=== PATIENT | female | born 1945 | race Caucasian/White ===

== ENCOUNTER 2019-03-25 01:40 | Observation (INO) ==
[2019-03-25] MEDS ORDERED: Naloxone 0.4 MG/ML INJ IVP PRN (05:31)
[2019-03-25] MEDS ORDERED: traMADol 50 MG TABLET PO ONE (05:44)
[2019-03-25] MEDS ORDERED: 0.9 % Sodium Chloride 1,000 ML IVC SCH (05:45)
--- NOTE | 2019-03-25 06:08 | Internal Med History&Physical ---
Date of Encounter: 03/25/19 Time of Encounter: 04:30 Internal Medicine - H&P: HPI Chief complaint: Abdominal Pain, Bloody Bowel Movements, Chest Pain Admitted From: Hospital to Hospital Transfer Plans for Post Hospital Care: Home History of present illness: Ms. Mcdaniels is a 73 year old female with past medical history significant for CAD, hypertension, COPD, DVT and PE with IVC filter, non-alcoholic cirrhosis, diabetes, GERD, diverticulosis, arthritis, osteoporosis, anxiety, and depression who presents as hospital transfer from [place] where she presented for abdominal pain, bloody bowel movements, and chest pain. Reports for past 2 days she has had sharp intermittent left lower quadrant abdominal pain accompanied by nausea and diarrhea. She also reports 3 episodes of bright red blood mixed with her stool, however reports her last bowel movement yesterday being normal consistency and without blood. Denies any hematemesis. Reports being in [facility] around 2 months ago for similar pain but states her workup was normal. Denies having any bright red blood with her bowel movements at that time. Also reports having an EGD completed at that time which she thinks was normal. Reports having a colonoscopy around 2 years ago also at [place] which she thinks was normal too. Also reports one day history of intermittent sharp left-sided chest pain associated with shortness of breath, nausea, and diaphoresis. Chest pain was improved with aspirin and nitroglycerin while enroute to sending ER. Patient reports having an echocardiogram and stress test around a year ago at [facility] or [facility] which she thinks both were normal. Sending ER obtained labs including CBC, BMP, lipase, liver panel, troponin, CRP, lactic, BNP all of which were unremarkable other than platelet count of 118, sodium of 132, glucose of 47, creatinine of 1.73, GFR of 28, CRP of 9.6, lactic acid of 2.9 which improved to 2.1 following IV fluids, and magnesium of 1.1. Sending ER also obtained chest x-ray which they reported to me by phone as being a normal chest x-ray that they will fax. Sending ER also reported to me by phone EKG showing chronic left bundle branch block and no acute changes that they will also fax. Sending ER also obtained CT of the abdomen and pelvis which showed diffuse diverticulosis, circumferential sigmoid wall thickening that may represent developing diverticulosis or infectious versus noninfectious colitis or neoplasm recommending colonoscopy after resolution of symptoms for further evaluation, cirrhosis and portal venous hypertension with gastric varices, and cholelithiasis. Patient currently reports feeling pain-free at this time. Currently denies any headache, numbness, tingling, chest pain, shortness of breath, abdominal pain, nausea, bowel or bladder changes. Reports following regularly with her PCP along with liver specialist at [facility]. Denies checking her blood sugars regularly. Past Med Surg Social Fam HX - Past Medical History Medical history: arthritis, cirrhosis, COPD, coronary artery disease, DVT, diabetes, GERD, hypertension, osteoporosis, pulmonary embolus, renal disease, valvular heart disease Additional medical history: Torn meniscus L knee - never repaired Psychiatric history: anxiety, depression - Past Surgical History Surgical History: cataract, hysterectomy, IVC filter Additional surgical history: Partial hysterectomy 1998; hernia repair x3; tonsils and adenoids removed; tubal ligation; IVC filter left groin - current/present - Social History Smoking Status: Never smoker Smokeless Tobacco Status: No Alcohol use: none Drug use: none Internal Medicine - H&P: Meds Allergy/AdvReac Type Severity Reaction Status Date / Time heparin Allergy Nausea Verified 03/25/19 05:41 All Systems PM: A 10-system review of systems was performed and is negative for pertinent findings except as documented above in the HPI. - Constitutional Vitals: Temp Pulse Resp BP Pulse Ox 98.0 F 93 16 137/84 98 03/25/19 03:46 03/25/19 03:46 03/25/19 03:46 03/25/19 03:46 03/25/19 03:58 Exam: General: Alert and oriented. Skin:Normal color, no rash, no lesions. HEENT:Pupils equal, round and reactive. Cardiovascular:Heart sounds distant, no rubs, murmurs or gallops. No JVD. Pulse regular. Lungs:Normal breath sounds, no wheezes or crackles. Abdomen:Soft, tender to palpation to LLQ, no rigidity, hypoactive bowel sounds. Extremities:No deformity, tenderness, joint swelling or clubbing. Non pitting edema noted to bilateral lower extremities. Neurological:Normal cognition and motor skills. Pulses:Carotid and radial pulses normal +2. Rest of the physical exam is non contributory. - Assessment and Plan (1) Abdominal pain Current Visit: Yes Status: Acute Assessment and plan: Reports for past 2 days she has had sharp intermittent left lower quadrant abdominal pain accompanied by nausea and diarrhea. Also reports 3 episodes of bright red blood mixed with her stool, however reports her last bowel movement yesterday being normal consistency and without blood. Reports being in [facility] around 2 months ago for similar pain but states her workup was normal. Sending ER obtained CT Abdomen Pelvis which showed diffuse diverticulosis, circumferential sigmoid wall thickening that may represent developing diverticulosis or infectious versus noninfectious colitis or neoplasm recommending colonoscopy after resolution of symptoms for further evaluation, cirrhosis and portal venous hypertension with gastric varices, and cholelithiasis. GI consult ordered, will need called in a.m. Continue IVF's. CBC q 8 hours. Coags ordered. Obtain stool study if another bowel movement. Qualifiers: Abdominal location: left lower quadrant Qualified Code(s): R10.32 - Left lower quadrant pain (2) Chest pain Current Visit: Yes Status: Acute Assessment and plan: Reports one day history of intermittent sharp left-sided chest pain associated with shortness of breath, nausea, diaphoresis. Chest pain was improved with aspirin and nitroglycerin while enroute to sending ER. Currently remains resolved at this time. Patient reports having a echocardiogram and stress test around a year ago at [facility] which she thinks both were normal. Initial troponin at sending ER negative, serial troponins ordered. Echocardiogram ordered. Continuous cardiac monitoring. Qualifiers: Chest pain type: unspecified Qualified Code(s): R07.9 - Chest pain, unspecified (3) Abnormal CT of the abdomen Current Visit: Yes Status: Acute Assessment and plan: Plan as stated above. (4) Thrombocytopenia Current Visit: Yes Status: Acute Assessment and plan: Platelet count of 118 at sending ER. Remainder of CBC within normal limits. Unknown if this is acute or chronic. Repeat labs ordered. (5) Acute kidney injury Current Visit: Yes Status: Acute Assessment and plan: Denies any known history of kidney disease. Sending ER labs show creatinine of 1.73 and GFR of 28 with normal BUN. Avoid nephrotoxins. Possibly related to recent decreased oral intake. Received IVF's at sending ER. Repeat labs ordered. Consult Nephrology if worsening kidney function. (6) Hyponatremia Current Visit: Yes Status: Acute Assessment and plan: Slightly decreased at sending ER at 132. Received IVF's at sending ER. Repeat labs ordered. (7) Elevated lactic acid level Current Visit: Yes Status: Acute Assessment and plan: Elevated at 2.9 at sending ER, repeat after fluids down to 2.1 Continue IVF's. Repeat labs ordered. (8) Hypomagnesemia Current Visit: Yes Status: Acute Assessment and plan: Sending ER labs showed magnesium of 1.1 No replacement reported at sending ER. Repeat labs ordered, replace if needed. (9) Cirrhosis Current Visit: Yes Status: Chronic Assessment and plan: Follows with liver specialist at [facility]. CT abdomen pelvis at sending ER showed cirrhosis and portal venous hypertension with gastric varices. Unknown if portal hypertension and gastric varices is new development. GI consult ordered, will need called in a.m. Qualifiers: Hepatic cirrhosis type: unspecified hepatic cirrhosis Ascites presence: unspecified Qualified Code(s): K74.60 - Unspecified cirrhosis of liver (10) Diabetes mellitus Current Visit: Yes Status: Chronic Assessment and plan: Hold home medications. Accuchecks ordered. Sliding scale insulin ordered. Qualifiers: Diabetes mellitus type: type 2 Qualified Code(s): E11.9 - Type 2 diabetes mellitus without complications - Time Spent With Patient Total time spent is greater than 50% in coordination of care (as documented) at patient's floor/unit and/or counseling patient:
[2019-03-25 06:23] LABS: Basophils % 0.8 %; Eosinophils # 0.1 K/mcL (0.0-0.6); Eosinophils % 2.3 %; Hematocrit 34.5 % (35.3-44.9); Hemoglobin 11.8 g/dL (11.5-15.4); Immature Granulocytes % 0.2 % (0-4); Lymphocytes # 2.7 K/mcL (0.6-4.6); Mean Corpuscular HGB Conc 34.2 g/dL (31.6-35.5); Mean Corpuscular Hemoglobin 32.2 pg (28.0-33.3); Mean Platelet Volume 10.8 fL (9.4-12.4); Monocytes # 0.4 K/mcL (0.0-1.3); Monocytes % 7.6 %; Neutrophils # 1.9 K/mcL (1.6-8.9); Platelet Count 101 K/mcL (140-400); Red Blood Count 3.67 M/mcL (3.82-4.97); Red Cell Distribution Width 13.7 % (11.5-14.5); Segmented Neutrophils % 36.1 %; White Blood Count 5.2 K/mcL (4.3-11.1)
[2019-03-25 06:30] LABS: INR 1.1
[2019-03-25] MEDS ORDERED: Dextrose Gel 15 GM/37.5 ML TUBE PO PRN ×2 (06:30)
[2019-03-25] MEDS ORDERED: *HR* Dextrose 50 % in Water (Syg) 50 ML SYRINGE IVP PRN (06:30)
[2019-03-25] MEDS ORDERED: D5% in Water 1,000 ML IVC PRN (06:30)
[2019-03-25 06:34] LABS: Albumin 3.3 g/dL (3.5-5.7); Albumin/Globulin Ratio 1.2 (1.1-2.2); Bilirubin,Total 0.9 mg/dL (0.3-1.0); Calcium 8.5 mg/dL (8.6-10.3); Globulin 2.8 g/dL (2.4-3.5); Potassium 3.7 mEq/L (3.5-5.1); Total Protein 6.1 g/dL (6.4-8.9)
--- NOTE | 2019-03-25 09:57 | Internal Med Progress Note ---
<Yobany Kelly - Last Filed: 03/25/19 16:02> Hospitalist Progress Note - Encounter Date of Encounter: 03/25/19 Time of Encounter: 09:57 - Subjective Interval History: Ms. Mcdaniels is a 73 y/o F who is a transfer from [facility] on 03/24. She presented with the CC of abdominal pain and bright red blood in her bowel movements for the past 3 days. She also presented with sharp lower left chest pain that resolved after 4 aspirins of unknown strength. CXR at [facility] ED was unremarkable, ECG showed a left bundle branch block that was chronic and had no acute changes, CT of chest was unremarkable, CT of abdomen showed diverticulosis with sigmoid colon wall thickening and possible diverticulitis. Ct also demonstrated liver cirrhosis (previously noted) and portal vein hypertension with gastric varicies. Pt. is currently not in pain and is lying comfortably in bed. She denies SOB, chest pain, wheezing, numbness, or tingling. Pt. complains of dizziness, which she states is normal, and diffuse abdominal tenderness. - Exam Vitals: Temp Pulse Resp BP Pulse Ox 97.8 F 89 15 106/60 98 03/25/19 07:40 03/25/19 07:40 03/25/19 07:40 03/25/19 07:40 03/25/19 09:06 Exam: Gen: AOx3, no acute distress, pleasant affect Skin: Warm and dry, no rashes or lesions Cardic: S1 and S2, no m/r/g Chest :CTA b/l, no wheezes or crackles. Abd:Soft, tender to palpation to RUQ, bowel sounds present. Extremities: Non-pitting edema noted to b/l lower extremities, normal sensation and strength Neuro:No focal deficits Pulses: Pulses normal on all 4 extremities. Rest of the physical exam is non contributory. - Assessment and Plan (1) BRBPR (bright red blood per rectum) Current Visit: Yes Status: Acute Assessment and Plan: Patient with three episodes prior to admission, one normal bowel movement prior to admission. Hgb normal at 11.8. CT at [facility] showed diffuse diverticulosis, circumferential sigmoid wall thickening which may represent developing diverticulitis but could also be seen in infectious vs noninfectious colitis and neoplasm, cirrhosis, portal venous hypertension with gastric varices. Ultrasound at [facility] on 03/25 showed cholelithiasis. GI evalution concluded in the recommendation of colonoscopy or EGD on either 03/[address] Smith to review CT and see patient and make determination. (2) Abdominal pain Current Visit: Yes Status: Acute Assessment and Plan: CT at [facility] showed diffuse diverticulosis, circumferential sigmoid wall thickening which may represent developing diverticulitis but could also be seen in infectious vs noninfectious colitis and neoplasm, cirrhosis, portal venous hypertension with gastric varices. WBC 5.2, Hgb 11.8, platelet count 101. Repeat ultrasound today showed colelithiasis. GI consulted and made recommendation for colonoscopy and EGD tomorrow or as outpatient. Serial Hgb scheduled for today 03/25, thrombocytopenia likely secondary to cirrhosis. We will continue to monitor pain and lab levels for any change. (3) Chest pain Current Visit: Yes Status: Acute Assessment and Plan: PT. presented to [facility] ED with the complaint of abdominal pain and chest pain. Pt. took 4 aspirins of unknown strength prior to admission and stated the pain had subsided. CXR at [facility] was normal. Troponins on 03/24 and 03/25 were normal. ECG showed LBBB most likely chronic with no acute changes. (4) Hypomagnesemia Current Visit: Yes Status: Acute Assessment and Plan: Pt. presented with low magnesium on arrival at [facility]. Pt. received 1g of magnesium at admission. Mg levels on the morning of 03/25 were 1 Pt. will receive IV magnesium 4g to replace. Mg levels will be rechecked on 03/26 (5) Cirrhosis Current Visit: Yes Status: Chronic Assessment and Plan: MENDEZ cirrhosis, Child-Jenkins class A as per GI. Recommend 2-4 BM daily. U/S revealed no evidence of HCC, normal cirrhotic liver morphology, no singular hepatic lesion. We will continue to monitor liver enzyme levels for change, Lactulose PRN. Lifestyle Changes as recommended by GI: 1. Total abstinence from alcohol including social drinking. 2. No smoking. 3. Gradual loss of weight. 4. Drink at least 3 cups of coffee due to its antioxidant effects in the liver, it reduces risk of HCC and advance fibrosis. 5. If needed, use less than 2 g/day of Tylenol (in divided doses). 6. Vaccination for Hep A, B, Pneumococcus if not already received and yearly influenza vaccination by PCP. 7. Avoid NSAIDS as can cause kidney damage. 8. Avoid benzodiazepines and other sedatives such as anti-histamines, narcotics etc. as can cause encephalopathy or confusion. 9. Take a late carbohydrate meal supplement as it reduces glucose production from protein breakdown and thus improves nutrition. 10. In cirrhosis, statins are safe to use and also improve portal hypertension and decrease risk of HCC. 11. Screening: Hepatocellular cancer screening: US of liver and AFP every 6 months (6) Diabetes mellitus Current Visit: Yes Status: Chronic Assessment and Plan: Pt. glucose measured at 334 on 03/25 Pt. will received sliding scale insulin while admitted. Continue glucose control and follow-up with PCP for DM management. - Time Spent with Patient Total time spent is greater than 50% in coordination of care (as documented) at patient's floor/unit and/or counseling patient: Internal Medicine: Result - Labs CBC & Chem 7: 03/25/19 12:56 03/25/19 05:56 Labs: Short CBC 03/25/19 Range/Units 05:56 WBC 5.2 (4.3-11.1) K/mcL Hgb 11.8 (11.5-15.4) g/dL Hct 34.5 L (35.3-44.9) % Plt Count 101 L (140-400) K/mcL Neutrophils # 1.9 (1.6-8.9) K/mcL BMP 03/25/19 05:56 Sodium 135 L Potassium 3.7 Chloride 103 Carbon Dioxide 24 BUN 21 Creatinine 1.29 H Glucose 334 H Calcium 8.5 L Cardiac Enzymes 03/25/19 Range/Units 05:56 Troponin I < 0.03 (< 0.04) ng/mL Liver Function 03/25/19 Range/Units 05:56 Total Bilirubin 0.9 (0.3-1.0) mg/dL AST 13 (13-39) Units/L ALT 10 (7-52) Units/L Alkaline Phosphatase 51 (34-104) Units/L Albumin 3.3 L (3.5-5.7) g/dL - ABG Interpretation ABG results: PT/INR, D-dimer PT 13.0 Seconds (9.4-12.1) H 03/25/19 05:56 Consult Discharge Plan - Plan Referrals: NONE,PCP [Primary Care Provider] - <Kristina Lynch - Last Filed: 03/25/19 16:44> Hospitalist Progress Note - Encounter Date of Encounter: 03/25/19 - Exam Vitals: Temp Pulse Resp BP Pulse Ox 97.8 F 89 15 106/60 98 03/25/19 07:40 03/25/19 07:40 03/25/19 07:40 03/25/19 07:40 03/25/19 09:06 - Assessment and Plan (1) Abdominal pain Current Visit: Yes Status: Acute (2) Chest pain Current Visit: Yes Status: Acute (3) Abnormal CT of the abdomen Current Visit: Yes Status: Acute (4) Thrombocytopenia Current Visit: Yes Status: Acute (5) Acute kidney injury Current Visit: Yes Status: Acute (6) Hyponatremia Current Visit: Yes Status: Acute (7) Elevated lactic acid level Current Visit: Yes Status: Acute (8) Hypomagnesemia Current Visit: Yes Status: Acute (9) Cirrhosis Current Visit: Yes Status: Chronic (10) Diabetes mellitus Current Visit: Yes Status: Chronic - Time Spent with Patient Total time spent is greater than 50% in coordination of care (as documented) at patient's floor/unit and/or counseling patient: Internal Medicine: Result - Labs CBC & Chem 7: 03/25/19 12:56 03/25/19 05:56 Labs: Short CBC 03/25/19 03/25/19 Range/Units 05:56 12:56 WBC 5.2 4.6 (4.3-11.1) K/mcL Hgb 11.8 12.1 (11.5-15.4) g/dL Hct 34.5 L 34.9 L (35.3-44.9) % Plt Count 101 L 103 L (140-400) K/mcL Neutrophils # 1.9 2.3 (1.6-8.9) K/mcL BMP 03/25/19 05:56 Sodium 135 L Potassium 3.7 Chloride 103 Carbon Dioxide 24 BUN 21 Creatinine 1.29 H Glucose 334 H Calcium 8.5 L Cardiac Enzymes 03/25/19 03/25/19 Range/Units 05:56 12:56 Troponin I < 0.03 < 0.03 (< 0.04) ng/mL Liver Function 03/25/19 Range/Units 05:56 Total Bilirubin 0.9 (0.3-1.0) mg/dL AST 13 (13-39) Units/L ALT 10 (7-52) Units/L Alkaline Phosphatase 51 (34-104) Units/L Albumin 3.3 L (3.5-5.7) g/dL - ABG Interpretation ABG results: PT/INR, D-dimer PT 13.0 Seconds (9.4-12.1) H 03/25/19 05:56 - Impressions Impressions Echocardiogram 03/25/19 05:34 Impressions: LVEF 60-65%. Normal LV chamber size, wall thickness and function. Atypical septal motion consistent with bundle branch block. Mild left ventricular diastolic dysfunction. Normal right ventricular structure and function. No evidence of pulmonary hypertension. No significant valvular dysfunction. Left Ventricular Wall Motion: Rest Echo Findings All wall segments showed normal motion. Findings: Study Quality * Technically adequate exam. ECG Findings * Sinus rhythm with BBB. Left Ventricle * LVEF 60-65%. * Normal LV chamber size, wall thickness and function. * Atypical septal motion consistent with bundle branch block. * Mild left ventricular diastolic dysfunction. Right Ventricle * Normal right ventricular structure and function. Left Atrium * Normal left atrial size. Right Atrium * Normal right atrial size. Interatrial Septum * Interatrial septum not well evaluated. Mitral Valve * Normal mitral valve structure and function. * No mitral regurgitation. * No mitral stenosis. Aortic Valve * Aortic valve not well visualized. * No aortic stenosis. * No aortic regurgitation. Tricuspid Valve * Normal tricuspid valve structure and function. * Trace tricuspid regurgitation. * No evidence of pulmonary hypertension. Pulmonic Valve * Normal pulmonic valve structure and function. * No pulmonic regurgitation. Aorta * Normally sized aortic root. Pericardium * The pericardium appears normal. IVC * Normal IVC dimensions and inspiratory collapse. Pulmonary Artery * Normal visualized portions of the main pulmonary artery. Liver Ultrasound 03/25/19 11:00 IMPRESSION: Cirrhotic morphology of the liver. No focal hepatic lesion identified. Cholelithiasis. D/ / Jesenia Valdovinos MD / Jesenia Valdovinos MD Interpreting Provider: Jesenia Valdovinos MD - Attending Attestation The history, physical exam, and medical decision making was performed by the medical student Kelly either while I was physically present and actively involved or I personally re-performed the exam and medical decision making. I have verified the accuracy of the medical student's documentation with regards to the history, physical exam findings, and medical decision making. Ms Mcdaniels is admitted for GIB and chest pain awake, cont to have bl LQ abd pain, no nausea emesis or diarrhea. no bms since admit, no bleeding since admit. denies fevers or chills. no longer having chest pain, denies chest pressure, palpitations, diaphoresis or sob. She is very tired as she did not sleep all night. gen- alert, awake,appears stated age eyes- pupils equal round , no conj pallor cv- reg rate and rhythm, normal s1,s2, no le edema lungs- ctabl, no wheezing, rhonchi or crackles abd- soft, + tender BL LQs, no rigidity, no guarding, non distended, + bs neuro- AAOx3, CN grossly intact Abd pain/ GIB CT scan OSH with sigmoid thickening and unclear etiology infectious, v non infectious, v malignancy, also noted cirrhosis w gastric varices -appreciate gi input, possible scopes in am, defer to gi for prep/diet orders, serial hgbs stable thus far w no active bleeding, cont IVF, PPI, scds for vte ppx, fobt remains pending Chest pain , atypical resolved per pt no nitro prior to arrival, only asa and pain resolved trops negative x3 total, ekg no acute changes as per shruthi report, echo with normal eF and mild DD, no sig valve disease and motion c/w BBB -tele, am ekg, cont to monitor, given no abnormalities thus far and no further pain likely will recommend outpt stress testing with PCP when outside of acutely ill/gib setting hypomagnesemia- IV repletion today, am repleat level thrombocytopenia, no active bleeding at this time, suspected 2/2 cirrhosis, no priors to determine chronicity- cont to monitor NIEVES improving with ivfs suspect pre renal from previous diarrhea now resolved - check UA, no signs of obstruction at this time, if does not improve in next 24hrs with ivfs will obtain renal US further diagnosis and plan as noted in student documentation update- based off most recent snf stay MAR meds were reconciled, awaiting [facility] records for most recent dc meds on dc summary essential home meds ordered, diuretics held, BB ordered but given normotensive and concern for prior gib only low dose home BB ordered and others held, hold standing insulin and oral agent, SSI in place, cont home prn tramadol for pain ___ <Yobany Kelly - Last Filed: 03/25/19 16:02> (2) Abdominal pain Qualifiers: Abdominal location: left lower quadrant Qualified Code(s): R10.32 - Left lower quadrant pain (3) Chest pain Qualifiers: Chest pain type: unspecified Qualified Code(s): R07.9 - Chest pain, unspecified (5) Cirrhosis Qualifiers: Hepatic cirrhosis type: unspecified hepatic cirrhosis Ascites presence: unspecified Qualified Code(s): K74.60 - Unspecified cirrhosis of liver (6) Diabetes mellitus Qualifiers: Diabetes mellitus type: type 2 Qualified Code(s): E11.9 - Type 2 diabetes mellitus without complications <Kristina Lynch M - Last Filed: 03/25/19 16:44> (1) Abdominal pain Qualifiers: Abdominal location: left lower quadrant Qualified Code(s): R10.32 - Left lower quadrant pain (2) Chest pain Qualifiers: Chest pain type: unspecified Qualified Code(s): R07.9 - Chest pain, unspecified (9) Cirrhosis Qualifiers: Hepatic cirrhosis type: unspecified hepatic cirrhosis Ascites presence: unspecified Qualified Code(s): K74.60 - Unspecified cirrhosis of liver (10) Diabetes mellitus Qualifiers: Diabetes mellitus type: type 2 Qualified Code(s): E11.9 - Type 2 diabetes mellitus without complications
--- NOTE | 2019-03-25 10:38 | Gastroenterology Consult Note ---
<Tejinder Diana Maurice - Last Filed: 03/25/19 10:36> Date of Encounter: 03/25/19 Time of Encounter: 09:15 - Assessment and plan (1) BRBPR (bright red blood per rectum) Current Visit: Yes Status: Acute Assessment and plan: Patient with three episodes prior to admission, none since that time. Hgb normal at 11.8. CT A/P at [facility] showed diffuse diverticulosis, circumferential sigmoid wall thickening which may represent developing diverticulitis but could also be seen in infectious vs noninfectious colitis and neoplasm, cirrhosis, portal venous hypertension with gastric varices, cholelithiasis. Consider EGD and colonoscopy tomorrow vs completing as outpatient. Dr. Smith to review CT and see patient and make determination. (2) Abdominal pain Current Visit: Yes Status: Acute Assessment and plan: CT A/P at [facility] showed diffuse diverticulosis, circumferential sigmoid wall thickening which may represent developing diverticulitis but could also be seen in infectious vs noninfectious colitis and neoplasm, cirrhosis, portal venous hypertension with gastric varices, cholelithiasis. WBC normal at 5.2. Consider EGD and colonoscopy tomorrow vs as outpatient. Qualifiers: Abdominal location: left lower quadrant Qualified Code(s): R10.32 - Left lower quadrant pain (3) Cirrhosis Current Visit: Yes Status: Chronic Assessment and plan: MENDEZ cirrhosis. MELD-Na 14 and Child-Jenkins class A. Recommend 2-4 BM daily, use Lactulose as needed. Check AFP and liver US to r/o HCC. Lifestyle Changes: 1. Total abstinence from alcohol including social drinking. 2. No smoking. 3. Gradual loss of weight. 4. Drink at least 3 cups of coffee due to its antioxidant effects in the liver, it reduces risk of HCC and advance fibrosis. 5. If needed, use less than 2 g/day of Tylenol (in divided doses). 6. Vaccination for Hep A, B, Pneumococcus if not already received and yearly influenza vaccination by PCP. 7. Avoid NSAIDS as can cause kidney damage. 8. Avoid benzodiazepines and other sedatives such as anti-histamines, narcotics etc. as can cause encephalopathy or confusion. 9. Take a late carbohydrate meal supplement as it reduces glucose production from protein breakdown and thus improves nutrition. 10. In cirrhosis, statins are safe to use and also improve portal hypertension and decrease risk of HCC. 11. Screening: Hepatocellular cancer screening: US of liver and AFP every 6 months Qualifiers: Hepatic cirrhosis type: unspecified hepatic cirrhosis Ascites presence: unspecified Qualified Code(s): K74.60 - Unspecified cirrhosis of liver (4) Thrombocytopenia Current Visit: Yes Status: Acute Assessment and plan: Likely secondary to cirrhosis. - Time Spent With Patient Total time spent is greater than 50% in coordination of care (as documented) at patient's floor/unit and/or counseling patient: GI History of Present Illness - Data of Consult Patient: new to practice Consult date: 03/25/19 Requesting Physician: Kristina Lynch - Consult Narrative Reason for consult: BRBPR, cirrhosis History of present illness: Ms. Mcdaniels is a 73 year old female with PMHx of MENDEZ cirrhosis, COPD, CAD, DVT, DM , GERD, HTN, DVT and PE with IVC filter, who was transferred from [facility] where she presented for abdominal pain, bloody bowel movements, and chest pain. She reports three episodes of large volume of bright red blood per rectum. CT A/P showed diffuse diverticulosis, circumferential sigmoid wall thickening which may represent developing diverticulitis but could also be seen in infectious vs noninfectious colitis and neoplasm, cirrhosis, portal venous hypertension with gastric varices, cholelithiasis. Reports being in [facility] around 2 months ago for similar pain but states her workup was normal. Denies having any bright red blood with her bowel movements at that time. Also reports having an EGD completed at that time which she thinks was normal. Reports having a colonoscopy around 2 years ago also at [place] which she thinks was normal too. Procedures: EGD 2 months ago [place]: Normal per patient report. Colonoscopy 2 years ago [facility]: Normal per patient report. NSAIDs: None Anticoagulation: None Past Med Surg Social Fam HX - Past Medical History Medical history: arthritis, cirrhosis, COPD, coronary artery disease, DVT, diabetes, GERD, hypertension, osteoporosis, pulmonary embolus, renal disease, valvular heart disease Additional medical history: Torn meniscus L knee - never repaired Psychiatric history: anxiety, depression - Past Surgical History Surgical History: cataract, hysterectomy, IVC filter Additional surgical history: Partial hysterectomy 1998; hernia repair x3; tonsils and adenoids removed; tubal ligation; IVC filter left groin - cur rent/present - Social History Smoking Status: Never smoker Smokeless Tobacco Status: No Alcohol use: none Drug use: none - Gastrointestinal Gastrointestinal: Present: as per HPI - Constitutional Constitutional: as per HPI - EENT Eyes: as per HPI Ears: Present: as per HPI Nose, mouth and throat: Present: as per HPI - Cardiovascular Cardiovascular ROS: Present: as per HPI - Respiratory Respiratory IM: Present: as per HPI - Genitourinary Genitourinary: Absent: change in color, Urinary frequency - Neurological ROS Neurological GI: Present: as per HPI - Hematologic/Lymphatic Hematologic/Lymphatic pediatric: Present: as per HPI - Musculoskeletal Musculoskeletal ROS GI: Present: as per HPI - Integumentary Integumentary GI: Present: as per HPI - Psychiatric ROS Psychiatric GI: Present: as per HPI - Endocrine Endocrine IM: Present: as per HPI - Constitutional Vitals: Temp Pulse Resp BP Pulse Ox 97.8 F 89 15 106/60 98 03/25/19 07:40 03/25/19 07:40 03/25/19 07:40 03/25/19 07:40 03/25/19 09:06 General appearance: Present: cooperative, A&O X 3, no acute distress, answers q uestions appropriately - Head Head exam: Present: atraumatic, normocephalic - Eye Eye exam: Present: normal appearance, sclera anicteric - ENT ENT exam: Present: mucous membranes moist - Neck Neck exam general surgery: Present: normal inspection, trachea midline - Respiratory Respiratory exam: Present: CTAB. Absent: rales, rhonchi - Cardiovascular Cardiovascular exam: Present: RRR, +S1, +S2 - GI/Abdominal GI/Abdominal exam: Present: normal bowel sounds, soft, tenderness (epigastric, mild left sided tenderness), no peritoneal signs. Absent: distended, firm, guarding - Rectal Rectal exam: Present: deferred - Extremities Exam Extremities exam: Present: warm - Neurological Exam Neurological exam: Present: no focal deficits - Psychiatric Psychiatric exam: Present: normal affect, normal mood - Skin Skin exam: Present: dry, intact, normal color, warm Results - Labs CBC & Chem 7: 03/25/19 05:56 03/25/19 05:56 Labs: Last Result 03/25/19 03/25/19 05:56 05:56 Calcium 8.5 L Troponin I < 0.03 Entire Visit 03/25/19 03/25/19 03/25/19 05:56 05:56 05:56 Hgb 11.8 Hct 34.5 L PT 13.0 H Total Bilirubin 0.9 AST 13 ALT 10 - ABG ABG results: PT/INR, D-dimer PT 13.0 Seconds (9.4-12.1) H 03/25/19 05:56 Consult Discharge Plan - Plan Referrals: NONE,PCP [Primary Care Provider] - <Jori Smith - Last Filed: 03/25/19 17:53> Date of Encounter: 03/25/19 Time of Encounter: 15:00 - Time Spent With Patient Total time spent is greater than 50% in coordination of care (as documented) at patient's floor/unit and/or counseling patient: GI History of Present Illness - Data of Consult Requesting Physician: Kristina Lynch - Consult Narrative History of present illness: Ms. Mcdaniels is a 73 year old female - Constitutional Vitals: Temp Pulse Resp BP Pulse Ox 98.0 F 89 15 120/75 95 03/25/19 16:27 03/25/19 16:27 03/25/19 16:27 03/25/19 16:27 03/25/19 16:27 Results - Labs CBC & Chem 7: 03/25/19 12:56 03/25/19 05:56 Labs: Last Result 03/25/19 03/25/19 03/25/19 05:56 05:56 12:56 Calcium 8.5 L Troponin I < 0.03 < 0.03 Entire Visit 03/25/19 03/25/19 03/25/19 05:56 05:56 05:56 Hgb 11.8 Hct 34.5 L PT 13.0 H Total Bilirubin 0.9 AST 13 ALT 10 03/25/19 12:56 Hgb 12.1 Hct 34.9 L PT Total Bilirubin AST ALT - ABG ABG results: PT/INR, D-dimer PT 13.0 Seconds (9.4-12.1) H 03/25/19 05:56 - Impressions Impressions Echocardiogram 03/25/19 05:34 Impressions: LVEF 60-65%. Normal LV chamber size, wall thickness and function. Atypical septal motion consistent with bundle branch block. Mild left ventricular diastolic dysfunction. Normal right ventricular structure and function. No evidence of pulmonary hypertension. No significant valvular dysfunction. Left Ventricular Wall Motion: Rest Echo Findings All wall segments showed normal motion. Findings: Study Quality * Technically adequate exam. ECG Findings * Sinus rhythm with BBB. Left Ventricle * LVEF 60-65%. * Normal LV chamber size, wall thickness and function. * Atypical septal motion consistent with bundle branch block. * Mild left ventricular diastolic dysfunction. Right Ventricle * Normal right ventricular structure and function. Left Atrium * Normal left atrial size. Right Atrium * Normal right atrial size. Interatrial Septum * Interatrial septum not well evaluated. Mitral Valve * Normal mitral valve structure and function. * No mitral regurgitation. * No mitral stenosis. Aortic Valve * Aortic valve not well visualized. * No aortic stenosis. * No aortic regurgitation. Tricuspid Valve * Normal tricuspid valve structure and function. * Trace tricuspid regurgitation. * No evidence of pulmonary hypertension. Pulmonic Valve * Normal pulmonic valve structure and function. * No pulmonic regurgitation. Aorta * Normally sized aortic root. Pericardium * The pericardium appears normal. IVC * Normal IVC dimensions and inspiratory collapse. Pulmonary Artery * Normal visualized portions of the main pulmonary artery. Liver Ultrasound 03/25/19 11:00 IMPRESSION: Cirrhotic morphology of the liver. No focal hepatic lesion identified. Cholelithiasis. D/ / Jesenia Valdovinos MD / Jesenia Valdovinos MD Interpreting Provider: Jesenia Valdovinos MD - Attending Attestation I have personally performed a face to face evaluation on this patient. I have reviewed and agree with the care plan. History and Exam by me shows: Patient seen denies any abdominal pain. On examination alert and awake not in distress abdomen is benign. Assessment: Patient with a history of cirrhosis now with rectal bleeding last colonoscopy was 2 years ago approximately. R ecommendation: EGD Colonoscopy in the morning
[2019-03-25] MEDS: Insulin LISPRO 300 UNITS/3 ML VIAL SQ SCH ×2 (12:44→17:07)
[2019-03-25 14:02] LABS: Basophils % 0.7 %; Eosinophils # 0.1 K/mcL (0.0-0.6); Eosinophils % 1.7 %; Hematocrit 34.9 % (35.3-44.9); Hemoglobin 12.1 g/dL (11.5-15.4); Immature Granulocytes % 0.2 % (0-4); Lymphocytes # 1.8 K/mcL (0.6-4.6); Lymphocytes % 39.6 %; Mean Corpuscular HGB Conc 34.7 g/dL (31.6-35.5); Mean Corpuscular Volume 95.1 fL (83.0-100.0); Mean Platelet Volume 10.7 fL (9.4-12.4); Monocytes # 0.4 K/mcL (0.0-1.3); Neutrophils # 2.3 K/mcL (1.6-8.9); Platelet Count 103 K/mcL (140-400); Red Blood Count 3.67 M/mcL (3.82-4.97); Red Cell Distribution Width 13.8 % (11.5-14.5); Segmented Neutrophils % 49.8 %; White Blood Count 4.6 K/mcL (4.3-11.1)
[2019-03-25] MEDS ORDERED: Ipratropium/Albuterol Neb 3 ML IH PRN (16:38)
[2019-03-25] MEDS ORDERED: traMADol 50 MG TABLET PO PRN (16:38)
[2019-03-25] MEDS ORDERED: SODIUM CHLORIDE/NAHCO3/KCL/PEG 4,000 ML SOLN.RECON PO ONE (17:00)
[2019-03-25] MEDS: Pantoprazole 40 MG VIAL IVP SCH (17:07)
--- NOTE | 2019-03-25 17:32 | Anesthesia Evaluation PreOp ---
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/depression) Other Medical History: Hepatic (non-alcoholic cirrhosis), Renal (stage 4 CKD), Diabetes Type II, GERD Anesthesia History: No Prior Anesthetic Complications, Past Anesthesia Alcohol Use: none Drug use: none Medications and Allergies Acetaminophen [Tylenol] 325 mg PO Q6HR PRN 03/25/19 [History] Acetaminophen/Butalbital/Caffe [Fioricet] 1 tab PO Q6H PRN 03/25/19 [History] Apixaban [Eliquis] 5 mg PO BID 03/25/19 [History] Aspirin [Adult Aspirin] 81 mg PO DAILY 03/25/19 [History] Atorvastatin Calcium [Lipitor] 20 mg PO HS 03/25/19 [History] BuPROPion [Wellbutrin] 100 mg PO DAILY 03/25/19 [History] Duloxetine HCl [Cymbalta] 120 mg PO HS 03/25/19 [History] Furosemide [Lasix] 20 mg PO QAM 03/25/19 [History] Insulin Glargine,Hum.rec.anlog [Lantus Solostar] 28 unit SQ HS 03/25/19 [History] Ipratropium/Albuterol Sulfate [Combivent Respimat 20-100 Mcg] 1 puff IH Q6H PRN 03/25/19 [History] Isosorbide MONOnitrate (24 HR) [Imdur] 30 mg PO QAM 03/25/19 [History] Metoprolol [Lopressor] 12.5 mg PO BID 03/25/19 [History] Multivitamin [One Daily Essential] 1 tab PO DAILY 03/25/19 [History] Pantoprazole Sodium [Protonix] 40 mg PO DAILY 03/25/19 [History] Sennosides [Senna] 8.6 mg PO BID 03/25/19 [History] SitaGLIPtin [Januvia] 100 mg PO DAILY 03/25/19 [History] Spironolactone [Aldactone] 50 mg PO QAM 03/25/19 [History] Tramadol HCl [Ultram] 50 mg PO QID PRN 03/25/19 [History] traZODone [TraZODone] 50 mg PO HS 03/25/19 [History] Allergy/AdvReac Type Severity Reaction Status Date / Time heparin AdvReac Nausea Verified 03/25/19 07:59 - Meds/Allergy Pre-op Review Medications Reviewed: Yes Allergies Reviewed: Yes Beta Blockers on Current Med List: Yes Anesthesia Results - Labs 03/25/19 12:56 03/25/19 05:56 - Imaging Additional studies: 03/25/2019 Echo Impressions: LVEF 60-65%. Normal LV chamber size, wall thickness and function. Atypical septal motion consistent with bundle branch block. Mild left ventricular diastolic dysfunction. Normal right ventricular structure and function. No evidence of pulmonary hypertension. No significant valvular dysfunction. Anesthesia Exam Vital Signs/O2 Sat/Glucose, Most Recent Temp Pulse Resp BP Pulse Ox 98.0 F 89 15 120/75 95 03/25/19 16:27 03/25/19 16:27 03/25/19 16:27 03/25/19 16:27 03/25/19 16:27 Blood Glucose* 328 Height: 5'5''/1.65m Weight: 216 lbs/98.4 kg Pain Scale: 0 Pain Scale Used: Numeric (1 - 10) - HEENT Pupil (Motor): EOMI Mallampati: II Teeth: Edentulous Oral Opening: Greater than 3 - LAP MACHINE OPERATOR LOC: Oriented LAP MACHINE OPERATOR Motor: Normal RUE, Normal LUE, Normal RLE, Normal LLE, Normal Face LAP MACHINE OPERATOR Sensory: Normal: RUE, LUE, RLE, LLE, Face - Cardiac Rhythm: Regular Murmur: None - Pulmonary Breath Sounds: bilateral Clear Respiratory Effort: Symmetrical Anesthesia Assess/Plan ASA Score: 3 Level of consciousness: Cooperative, Oriented, Tranquil Anesthetic Plan: MAC Monitoring Plan: Standard Monitors
[2019-03-25 17:49] LABS: Bilirubin,Urine Negative (Negative); Blood,Urine Negative (Negative); Clarity,Urine Clear (Clear); Color,Urine Yellow (Yellow); Glucose,Urine (UA) >=1000 mg/dL (Normal); Ketones,Urine Negative (Negative); Leukocyte Esterase,Urine Negative (Negative); Nitrite,Urine Negative (Negative); Protein,Urine Negative (Neg-Trace); Specific Gravity,Urine 1.015 (1.010-1.025); Urobilinogen,Urine Normal (Normal)
[2019-03-25 21:31] LABS: Basophils # 0.1 K/mcL (0.0-0.2); Eosinophils # 0.2 K/mcL (0.0-0.6); Eosinophils % 2.2 %; Hemoglobin 12.9 g/dL (11.5-15.4); Immature Granulocytes % 0.3 % (0-4); Lymphocytes % 41.2 %; Mean Corpuscular HGB Conc 33.9 g/dL (31.6-35.5); Mean Corpuscular Hemoglobin 31.9 pg (28.0-33.3); Mean Corpuscular Volume 94.1 fL (83.0-100.0); Mean Platelet Volume 10.7 fL (9.4-12.4); Monocytes # 0.6 K/mcL (0.0-1.3); Monocytes % 8.6 %; Neutrophils # 3.4 K/mcL (1.6-8.9); Platelet Count 127 K/mcL (140-400); Red Blood Count 4.04 M/mcL (3.82-4.97); Red Cell Distribution Width 13.7 % (11.5-14.5); Segmented Neutrophils % 46.7 %
[2019-03-25 21:32] LABS: Hematocrit 38.8 % (35.3-44.9); Hemoglobin 13.1 g/dL (11.5-15.4); White Blood Count 7.3 K/mcL (4.3-11.1)
[2019-03-26] MEDS: Insulin LISPRO 300 UNITS/3 ML VIAL SQ SCH ×4 (00:35→17:26)
[2019-03-26] MEDS: Pantoprazole 40 MG VIAL IVP SCH (05:52)
[2019-03-26 06:50] LABS: Basophils # 0.1 K/mcL (0.0-0.2); Basophils % 0.9 %; Eosinophils # 0.2 K/mcL (0.0-0.6); Eosinophils % 2.6 %; Hematocrit 36.3 % (35.3-44.9); Hemoglobin 12.4 g/dL (11.5-15.4); Immature Granulocytes % 0.3 % (0-4); Lymphocytes # 1.7 K/mcL (0.6-4.6); Lymphocytes % 29.7 %; Mean Corpuscular HGB Conc 34.2 g/dL (31.6-35.5); Mean Corpuscular Hemoglobin 31.8 pg (28.0-33.3); Mean Corpuscular Volume 93.1 fL (83.0-100.0); Mean Platelet Volume 10.4 fL (9.4-12.4); Monocytes # 0.5 K/mcL (0.0-1.3); Monocytes % 8.2 %; Neutrophils # 3.3 K/mcL (1.6-8.9); Platelet Count 113 K/mcL (140-400); Red Cell Distribution Width 13.7 % (11.5-14.5); Segmented Neutrophils % 58.3 %; White Blood Count 5.7 K/mcL (4.3-11.1)
[2019-03-26 07:10] LABS: BUN/Creatinine Ratio 13 (6-26); Blood Urea Nitrogen 14 mg/dL (8-23); Calcium 8.6 mg/dL (8.6-10.3); Carbon Dioxide 23 mEq/L (23-29); Chloride 104 mEq/L (98-107); Glucose 270 mg/dL (70-105); Magnesium 1.7 mg/dL (1.6-2.6); Osmolality,Calculated 292 (280-300); Potassium 3.9 mEq/L (3.5-5.1); Sodium 136 mEq/L (136-145); eGFR For African Americans > 60 (> 60); eGFR For Non-African Americans 52 (> 60)
--- NOTE | 2019-03-26 08:23 | Internal Med Progress Note ---
<Kristina Lynch - Last Filed: 03/26/19 12:08> Hospitalist Progress Note - Encounter Date of Encounter: 03/26/19 - Exam Vitals: Temp Pulse Resp BP Pulse Ox 97.9 F 88 15 126/82 97 03/26/19 11:53 03/26/19 11:53 03/26/19 11:53 03/26/19 11:53 03/26/19 11:53 - Assessment and Plan (1) Abdominal pain Current Visit: Yes Status: Acute (2) Chest pain Current Visit: Yes Status: Acute (3) Abnormal CT of the abdomen Current Visit: Yes Status: Acute (4) Thrombocytopenia Current Visit: Yes Status: Acute (5) Acute kidney injury Current Visit: Yes Status: Acute (6) Hyponatremia Current Visit: Yes Status: Acute (7) Elevated lactic acid level Current Visit: Yes Status: Acute (8) Hypomagnesemia Current Visit: Yes Status: Acute (9) Cirrhosis Current Visit: Yes Status: Chronic (10) Diabetes mellitus Current Visit: Yes Status: Chronic - Time Spent with Patient Total time spent is greater than 50% in coordination of care (as documented) at patient's floor/unit and/or counseling patient: Internal Medicine: Result - Labs CBC & Chem 7: 03/26/19 06:32 03/26/19 06:32 Labs: Short CBC 03/25/19 03/25/19 03/25/19 Range/Units 12:56 21:15 21:15 WBC 4.6 7.3 D (4.3-11.1) K/mcL Hgb 12.1 12.9 13.1 (11.5-15.4) g/dL Hct 34.9 L 38.0 38.8 (35.3-44.9) % Plt Count 103 L 127 L (140-400) K/mcL Neutrophils # 2.3 3.4 (1.6-8.9) K/mcL 03/26/19 Range/Units 06:32 WBC 5.7 (4.3-11.1) K/mcL Hgb 12.4 (11.5-15.4) g/dL Hct 36.3 (35.3-44.9) % Plt Count 113 L (140-400) K/mcL Neutrophils # 3.3 (1.6-8.9) K/mcL [facility] 03/26/19 06:32 Sodium 136 Potassium 3.9 Chloride 104 Carbon Dioxide 23 BUN 14 Creatinine 1.05 Glucose 270 H Calcium 8.6 Cardiac Enzymes 03/25/19 Range/Units 12:56 Troponin I < 0.03 (< 0.04) ng/mL Urine 03/25/19 Range/Units 17:27 Urine Color Yellow (Yellow) Urine Clarity Clear (Clear) Urine pH 6.0 (5.0-8.0) pH Units Ur Specific Abell 1.015 (1.010-1.025) Urine Protein Negative (Neg-Trace) mg/dL Urine Glucose (UA) >=1000 H (Normal) mg/dL - ABG Interpretation ABG results: PT/INR, D-dimer PT 13.0 Seconds (9.4-12.1) H 03/25/19 05:56 - Impressions Impressions Echocardiogram 03/25/19 05:34 Impressions: LVEF 60-65%. Normal LV chamber size, wall thickness and function. Atypical septal motion consistent with bundle branch block. Mild left ventricular diastolic dysfunction. Normal right ventricular structure and function. No evidence of pulmonary hypertension. No significant valvular dysfunction. Left Ventricular Wall Motion: Rest Echo Findings All wall segments showed normal motion. Findings: Study Quality * Technically adequate exam. ECG Findings * Sinus rhythm with BBB. Left Ventricle * LVEF 60-65%. * Normal LV chamber size, wall thickness and function. * Atypical septal motion consistent with bundle branch block. * Mild left ventricular diastolic dysfunction. Right Ventricle * Normal right ventricular structure and function. Left Atrium * Normal left atrial size. Right Atrium * Normal right atrial size. Interatrial Septum * Interatrial septum not well evaluated. Mitral Valve * Normal mitral valve structure and function. * No mitral regurgitation. * No mitral stenosis. Aortic Valve * Aortic valve not well visualized. * No aortic stenosis. * No aortic regurgitation. Tricuspid Valve * Normal tricuspid valve structure and function. * Trace tricuspid regurgitation. * No evidence of pulmonary hypertension. Pulmonic Valve * Normal pulmonic valve structure and function. * No pulmonic regurgitation. Aorta * Normally sized aortic root. Pericardium * The pericardium appears normal. IVC * Normal IVC dimensions and inspiratory collapse. Pulmonary Artery * Normal visualized portions of the main pulmonary artery. Consult Discharge Plan - Plan Referrals: NONE,PCP [Primary Care Provider] - - Attending Attestation The history, physical exam, and medical decision making was performed by the medical student Robin either while I was physically present and actively involved or I personally re-performed the exam and medical decision making. I have verified the accuracy of the medical student's documentation with regards to the history, physical exam findings, and medical decision making. Ms Mcdaniels is admitted for GIB and chest pain now resolved awake, cont to have abd discomfort, now localizing RUQ and LLQ, did bowel prep and no blood in stool. no cp, pressure or sob. awaiting scopes today. no pain in legs does have chronic swelling gen- alert, awake,appears stated age cv- reg rate and rhythm, normal s1,s2 lungs- ctabl, no wheezing, rhonchi or crackles, norm resp effort abd- soft, + tender BL LQs, no rigidity, no guarding, non distended, + bs neuro- AAOx3, CN grossly intact Abd pain/ GIB CT scan OSH with sigmoid thickening and unclear etiology infectious, v non infectious, v malignancy, also noted cirrhosis w gastric varices -appreciate gi input, serial hgbs stable scds for vte ppx, for egd and cscope today, further plan pending result and resumption of remainder of home meds pending results Chest pain , atypical resolved work up here unremarkable -cont tele, fu with pcp and will rec for outpt stress test when outside of acutely ill/gib setting thrombocytopenia, no active bleeding at this time, suspected 2/2 cirrhosis, no priors to determine chronicity- cont to monitor NIEVES resolved with ivfs - will likely resume her home diuretics in am as she did bowel prep last night/this morning further diagnosis and plan as noted in student documentation obtain pt/ot alaina to begin dispo planning <Yobany Kelly - Last Filed: 03/26/19 13:47> Hospitalist Progress Note - Encounter Date of Encounter: 03/26/19 Time of Encounter: 08:23 - Subjective Interval History: Ms. Mcdaniels is a 73 y/o F who was transferred from [facility] ED on 03/25 for abdominal pain and CP. CT of the abdomen from [facility] showed diffuse diverticulosis and possible diverticulitis with sigmoid colon wall thickening possibly from inf lammation or neoplasm; CXR from [facility] was non-contributing. Echocardiogram showed EF of 60-65% and ECG showed left axis deviation and septal infarct of unknown age, serial troponins have been negative. Pt. will undergo EGD colonoscopy this morning as per GI request. Pt. complains of SOB, lightheadedness, abdominal discomfort, and RUQ pain. She denies headache, fever, chills, numbness, tingling, palpitations, or chest pain. - Exam Vitals: Temp Pulse Resp BP Pulse Ox 98.1 F 81 16 116/77 99 03/26/19 08:09 03/26/19 08:09 03/26/19 08:09 03/26/19 08:09 03/26/19 08:09 Exam: Gen: AOx3, no acute distress, pleasant affect Skin: Warm and dry, no rashes or lesions Cardic: S1 and S2, no m/r/g Chest :CTA b/l, no wheezes or crackles. Abd:Soft, tender to palpation to RUQ and LUQ, bowel sounds not present. Extremities: Non-pitting edema noted lower right extremity, normal sensation and strength on all 4 extremities. Neuro:No focal deficits Pulses: Pulses normal on all 4 extremities. Rest of the physical exam is non contributory. - Assessment and Plan (1) BRBPR (bright red blood per rectum) Current Visit: Yes Status: Acute Assessment and Plan: Patient with three episodes prior to admission, one normal bowel movement prior to admission. Hgb normal at 12.3. CT at [facility] showed diffuse diverticulosis, circumferential sigmoid wall thickening which may represent developing diverticulitis but could also be seen in infectious vs noninfectious colitis and neoplasm, cirrhosis, portal venous hypertension with gastric varices. Ultrasound at [facility] on 03/25 showed cholelithiasis. EGD on 03/26 showed Grade 1 esophageal and gastric varicies, a small hiatal hernia, and normal duodenum; no acute bleeding seen. Stool Occult blood test from 03/26 returned negative. (2) Abdominal pain Current Visit: Yes Status: Acute Assessment and Plan: CT at [facility] showed diffuse diverticulosis, circumferential sigmoid wall thickening which may represent developing diverticulitis but could also be seen in infectious vs noninfectious colitis and neoplasm, cirrhosis, portal venous hypertension with gastric varices. Repeat ultrasound 03/25 showed colelithiasis, Echocardiogram returned with an unchanged EF 60-65%, ECG showed left axis deviation and septal wall LA of unknown age. Serial troponins have been negative. GI completed colonoscopy and EGD on 03/26, results still pending. Thrombocytopenia likely secondary to cirrhosis. General surgery was contacted and stated Pt. does not need inpatient consultat ion, Pt. will receive outpatient refferal for general surgery at discharge. (3) Chest pain Current Visit: Yes Status: Acute Assessment and Plan: Pt. presented to [facility] ED with the complaint of abdominal pain and chest pain, she took 4 aspirins of unknown strength prior to admission to [facility] and stated the pain had subsided. CXR at [facility] was normal on 03/25, serial troponins on 03/24 and 03/25 were normal, echocardiogram on 03/25 was unchanged from previous, ECG showed septal wall LA of an unknown age. Pt. still complains of SOB and lightheadedness when walking. Pt. should follow-up outpatient with PCP and undergo cardiac stress test on outpatient. (4) Hypomagnesemia Current Visit: Yes Status: Resolved Assessment and Plan: Pt. presented with low magnesium on arrival at [facility] 03/24 and received 1g of magnesium at admission, Mg still at 1. Pt. received IV magnesium 4g to replace deficiency on 03/25. Mg levels on 03/26 were up from 1.4 to 1.7 following repletion. (5) Cirrhosis Current Visit: Yes Status: Chronic Assessment and Plan: MENDEZ cirrhosis, Child-Jenkins class A as per GI. Recommend 2-4 BM daily. U/S revealed no evidence of HCC, normal cirrhotic liver morphology, no singular hepatic lesion. We will continue to monitor liver enzyme levels for change, Lactulose PRN. Lifestyle Changes as recommended by GI: 1. Total abstinence from alcohol including social drinking. 2. No smoking. 3. Gradual loss of weight. 4. Drink at least 3 cups of coffee due to its antioxidant effects in the liver, it reduces risk of HCC and advance fibrosis. 5. If needed, use less than 2 g/day of Tylenol (in divided doses). 6. Vaccination for Hep A, B, Pneumococcus if not already received and yearly influenza vaccination by PCP. 7. Avoid NSAIDS as can cause kidney damage. 8. Avoid benzodiazepines and other sedatives such as anti-histamines, narcotics etc. as can cause encephalopathy or confusion. 9. Take a late carbohydrate meal supplement as it reduces glucose production from protein breakdown and thus improves nutrition. 10. In cirrhosis, statins are safe to use and also improve portal hypertension and decrease risk of HCC. 11. Screening: Hepatocellular cancer screening: US of liver and AFP every 6 months (6) Diabetes mellitus Current Visit: Yes Status: Chronic Assessment and Plan: Pt. glucose measured POC 204 on 03/26, pt. is still NPO for upcoming GI procedure. Still on sliding scale insulin, with accuchecks q6hrs, will be started on home DM medications after GI procedures Follow-up with PCP for DM management on discharge. - Time Spent with Patient Total time spent is greater than 50% in coordination of care (as documented) at patient's floor/unit and/or counseling patient: Internal Medicine: Result - Labs CBC & Chem 7: 03/26/19 06:32 03/26/19 06:32 Labs: Short CBC 03/25/19 03/25/19 03/25/19 Range/Units 12:56 21:15 21:15 WBC 4.6 7.3 D (4.3-11.1) K/mcL Hgb 12.1 12.9 13.1 (11.5-15.4) g/dL Hct 34.9 L 38.0 38.8 (35.3-44.9) % Plt Count 103 L 127 L (140-400) K/mcL Neutrophils # 2.3 3.4 (1.6-8.9) K/mcL 03/26/19 Range/Units 06:32 WBC 5.7 (4.3-11.1) K/mcL Hgb 12.4 (11.5-15.4) g/dL Hct 36.3 (35.3-44.9) % Plt Count 113 L (140-400) K/mcL Neutrophils # 3.3 (1.6-8.9) K/mcL BMP 03/26/19 06:32 Sodium 136 Potassium 3.9 Chloride 104 Carbon Dioxide 23 BUN 14 Creatinine 1.05 Glucose 270 H Calcium 8.6 Cardiac Enzymes 03/25/19 Range/Units 12:56 Troponin I < 0.03 (< 0.04) ng/mL Urine 03/25/19 Range/Units 17:27 Urine Color Yellow (Yellow) Urine Clarity Clear (Clear) Urine pH 6.0 (5.0-8.0) pH Units Ur Specific Abell 1.015 (1.010-1.025) Urine Protein Negative (Neg-Trace) mg/dL Urine Glucose (UA) >=1000 H (Normal) mg/dL - ABG Interpretation ABG results: PT/INR, D-dimer PT 13.0 Seconds (9.4-12.1) H 03/25/19 05:56 - Impressions Impressions Echocardiogram 03/25/19 05:34 Impressions: LVEF 60-65%. Normal LV chamber size, wall thickness and function. Atypical septal motion consistent with bundle branch block. Mild left ventricular diastolic dysfunction. Normal right ventricular structure and function. No evidence of pulmonary hypertension. No significant valvular dysfunction. Left Ventricular Wall Motion: Rest Echo Findings All wall segments showed normal motion. Findings: Study Quality * Technically adequate exam. ECG Findings * Sinus rhythm with BBB. Left Ventricle * LVEF 60-65%. * Normal LV chamber size, wall thickness and function. * Atypical septal motion consistent with bundle branch block. * Mild left ventricular diastolic dysfunction. Right Ventricle * Normal right ventricular structure and function. Left Atrium * Normal left atrial size. Right Atrium * Normal right atrial size. Interatrial Septum * Interatrial septum not well evaluated. Mitral Valve * Normal mitral valve structure and function. * No mitral regurgitation. * No mitral stenosis. Aortic Valve * Aortic valve not well visualized. * No aortic stenosis. * No aortic regurgitation. Tricuspid Valve * Normal tricuspid valve structure and function. * Trace tricuspid regurgitation. * No evidence of pulmonary hypertension. Pulmonic Valve * Normal pulmonic valve structure and function. * No pulmonic regurgitation. Aorta * Normally sized aortic root. Pericardium * The pericardium appears normal. IVC * Normal IVC dimensions and inspiratory collapse. Pulmonary Artery * Normal visualized portions of the main pulmonary artery. Liver Ultrasound 03/25/19 11:00 IMPRESSION: Cirrhotic morphology of the liver. No focal hepatic lesion identified. Cholelithiasis. D/ / Jesenia Valdovinos MD / Jesenia Valdovinos MD Interpreting Provider: Jesenia Valdovinos MD <Kristina Lynch M - Last Filed: 03/26/19 12:08> (1) Abdominal pain Qualifiers: Abdominal location: left lower quadrant Qualified Code(s): R10.32 - Left lower quadrant pain (2) Chest pain Qualifiers: Chest pain type: unspecified Qualified Code(s): R07.9 - Chest pain, unspecified (9) Cirrhosis Qualifiers: Hepatic cirrhosis type: unspecified hepatic cirrhosis Ascites presence: unspecified Qualified Code(s): K74.60 - Unspecified cirrhosis of liver (10) Diabetes mellitus Qualifiers: Diabetes mellitus type: type 2 Qualified Code(s): E11.9 - Type 2 diabetes mellitus without complications <Yobany Kelly J - Last Filed: 03/26/19 13:47> (2) Abdominal pain Qualifiers: Abdominal location: left lower quadrant Qualified Code(s): R10.32 - Left low er quadrant pain (3) Chest pain Qualifiers: Chest pain type: unspecified Qualified Code(s): R07.9 - Chest pain, unspecified (5) Cirrhosis Qualifiers: Hepatic cirrhosis type: unspecified hepatic cirrhosis Ascites presence: unspecified Qualified Code(s): K74.60 - Unspecified cirrhosis of liver (6) Diabetes mellitus Qualifiers: Diabetes mellitus type: type 2 Qualified Code(s): E11.9 - Type 2 diabetes me llitus without complications
--- NOTE | 2019-03-26 08:43 | Electrocardiograph Report ---
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
[2019-03-26] MEDS ORDERED: Propofol 500 MG/50 ML INFUS..BTL ONE (11:20)
[2019-03-26] MEDS ORDERED: Lidocaine -MPF 2% 2 ML VIAL ONE (11:20)
[2019-03-26] MEDS ORDERED: *HR* PHENYLEPHRINE 1,000 MCG/10 ML SYRINGE IVP ONE (11:57)
[2019-03-26] MEDS ORDERED: Insulin LISPRO 300 UNITS/3 ML VIAL SQ SCH (23:08)
[2019-03-27 03:39] LABS: Hematocrit 33.2 % (35.3-44.9); Hemoglobin 11.4 g/dL (11.5-15.4)
--- NOTE | 2019-03-27 07:35 | Discharge Summary ---
<JohnCharuMyke C - Last Filed: 03/27/19 13:23> - NOTES TO OUTPATIENT PROVIDER Notes to Outpatient Provider: Patient admitted and treated for abdominal pain, EGD/colonoscopy benign, patient has follow-up with GI scheduled. Patient also has follow-up with surgery for evaluation of cholelithiasis. No change to home medication regimen or new medications. Recommend rechecking CBC in 3-5 days for mild anemia. Orders not resulted at time of discharge: Pending orders 03/25/19 12:56 AFP Tumor Marker Non- Routine 03/26/19 13:23 Surgical Pathology [PTH] Routine Date of Encounter: 03/27/19 Time of Encounter: 07:35 - Discharge Diagnosis (1) BRBPR (bright red blood per rectum) Priority: Primary Status: Resolved (2) Abdominal pain Priority: Secondary Status: Chronic Qualifiers: Abdominal location: left lower quadrant Qualified Code(s): R10.32 - Left lower quadrant pain (3) Chest pain Priority: Secondary Status: Resolved Qualifiers: Chest pain type: unspecified Qualified Code(s): R07.9 - Chest pain, unspecified (4) Thrombocytopenia Priority: Secondary Status: Acute (5) Acute kidney injury Priority: Secondary Status: Resolved (6) Hypomagnesemia Priority: Secondary Status: Resolved (7) Cirrhosis Priority: Secondary Status: Chronic Qualifiers: Hepatic cirrhosis type: unspecified hepatic cirrhosis Ascites presence: unspecified Qualified Code(s): K74.60 - Unspecified cirrhosis of liver (8) Diabetes mellitus Priority: Secondary Status: Chronic Qualifiers: Diabetes mellitus type: type 2 Qualified Code(s): E11.9 - Type 2 diabetes mellitus without complications Hospital course: Ms. Mcdaniels is a 73 year old female with past medical history significant for CAD, hypertension, COPD, DVT and PE with IVC filter, non-alcoholic cirrhosis, diabetes, GERD, diverticulosis, arthritis, osteoporosis, anxiety, and depression who presents as hospital transfer from [facility] ER where she presented for abdominal pain, bloody bowel movements, and chest pain. Evaluation at [facility] included CBC, BMP, lipase, liver panel, troponin, CRP, lactic, BNP all of which were unremarkable other than platelet count of 118, sodium of 132, glucose of 47, creatinine of 1.73, GFR of 28, CRP of 9.6, lactic acid of 2.9 which improved to 2.1 following IV fluids, and magnesium of 1.1. Chest x- ray was performed showing no acute process, EKG was performed showing chronic left bundle branch block without any acute changes. CT of the abdomen and pelvis which showed diffuse diverticulosis, circumferential sigmoid wall thickening that may represent developing diverticulosis or infectious versus noninfectious colitis or neoplasm recommending colonoscopy after resolution of symptoms for further evaluation, cirrhosis and portal venous hypertension with gastric varic es, and cholelithiasis. Aspirin and nitroglycerin were given at [facility]. On arrival to our facility vision was no longer having chest pain or abdominal pain. She was admitted for abdominal pain, bright red blood per rectum, chest pain, acute kidney injury, lactic acidosis, hypomagnesemia. Gastroenterology consultation was placed and she was admitted to the hospitalist service in stable condition. The next morning gastroenterology did evaluate the patient, recommending repeat colonoscopy and EGD, as well as liver ultrasound and AFP for cirrhosis. AFP was within normal limits and liver ultrasound demonstrated cirrhotic liver without any other acute abnormalities. EGD demonstrated grade 1 esophageal varices and a small hiatal hernia, no further recommendations were made. Colonoscopy demonstrated one 5 mm nonbleeding polyp in the cecum which was removed, two 5 mm nonbleeding polyps in the ascending colon which were resected, and one 3 mm nonbleeding polyp in the sigmoid colon which was resected. A single colonic angiectasia was treated with argon plasma coagulation. Recommendation was to await pathology results and repeat colonoscopy in 3 years. Otherwise patient was medically stable, with abdominal and cardiac evaluations being benign, acute kidney injury resolving with IV fluids, and other chronic medical conditions managed. She was evaluated by physical therapy and assessed for discharge disposition. Physical therapy recommended home with home health. Discussion was had with patient that home health agencies could not be coordinated for her home because of her previous infestations with bedbugs. Patient was recommended to discharge to [facility] facility however she refused. We will discharge to home in stable medical condition with recommendation for outpatient physical therapy. Discharge discussed with: patient, family, social work - Time Spent with Patient Total time spent providing and/or coordinating discharge services: - Discharge Medications Prescriptions: Continued Acetaminophen [Tylenol] 325 mg PO Q6HR PRN PRN Reason: Pain Acetaminophen/Butalbital/Caffe [Fioricet] 1 tab PO Q6H PRN PRN Reason: Migraine Headache Aspirin [Adult Aspirin] 81 mg PO DAILY Atorvastatin Calcium [Lipitor] 20 mg PO HS BuPROPion [Wellbutrin] 100 mg PO DAILY Duloxetine HCl [Cymbalta] 120 mg PO HS Furosemide [Lasix] 20 mg PO QAM Insulin Glargine,Hum.rec.anlog [Lantus Solostar] 28 unit SQ HS Ipratropium/Albuterol Sulfate [Combivent Respimat 20-100 Mcg] 1 puff IH Q6H PRN PRN Reason: Shortness Of Breath Isosorbide MONOnitrate (24 HR) [Imdur] 30 mg PO QAM Metoprolol [Lopressor] 12.5 mg PO BID Multivitamin [One Daily Essential] 1 tab PO DAILY Pantoprazole Sodium [Protonix] 40 mg PO DAILY Sennosides [Senna] 8.6 mg PO BID SitaGLIPtin [Januvia] 100 mg PO DAILY Spironolactone [Aldactone] 50 mg PO QAM Tramadol HCl [Ultram] 50 mg PO QID PRN PRN Reason: Pain traZODone [TraZODone] 50 mg PO HS Discontinued Apixaban [Eliquis] 5 mg PO BID Home Medications: Acetaminophen [Tylenol] 325 mg PO Q6HR PRN 03/25/19 [History] Acetaminophen/Butalbital/Caffe [Fioricet] 1 tab PO Q6H PRN 03/25/19 [History] Aspirin [Adult Aspirin] 81 mg PO DAILY 03/25/19 [History] Atorvastatin Calcium [Lipitor] 20 mg PO HS 03/25/19 [History] BuPROPion [Wellbutrin] 100 mg PO DAILY 03/25/19 [History] Duloxetine HCl [Cymbalta] 120 mg PO HS 03/25/19 [History] Furosemide [Lasix] 20 mg PO QAM 03/25/19 [History] Insulin Glargine,Hum.rec.anlog [Lantus Solostar] 28 unit SQ HS 03/25/19 [History] Ipratropium/Albuterol Sulfate [Combivent Respimat 20-100 Mcg] 1 puff IH Q6H PRN 03/25/19 [History] Isosorbide MONOnitrate (24 HR) [Imdur] 30 mg PO QAM 03/25/19 [History] Metoprolol [Lopressor] 12.5 mg PO BID 03/25/19 [History] Multivitamin [One Daily Essential] 1 tab PO DAILY 03/25/19 [History] Pantoprazole Sodium [Protonix] 40 mg PO DAILY 03/25/19 [History] Sennosides [Senna] 8.6 mg PO BID 03/25/19 [History] SitaGLIPtin [Januvia] 100 mg PO DAILY 03/25/19 [History] Spironolactone [Aldactone] 50 mg PO QAM 03/25/19 [History] Tramadol HCl [Ultram] 50 mg PO QID PRN 03/25/19 [History] traZODone [TraZODone] 50 mg PO HS 03/25/19 [History] Allergies/Adverse Reactions: Allergy/AdvReac Type Severity Reaction Status Date / Time niacin Allergy Hives Verified 03/26/19 12:50 [From Niaspan Extended-Release] oxycodone [From Percocet] Allergy Hives Verified 03/26/19 12:50 heparin AdvReac Nausea Verified 03/25/19 07:59 Date of admission: 03/25/19 03:20 Primary care physician: PCP NONE Consults: 03/25/19 05:35 Consult to Gastroenterology [CONS] Routine Consulting Provider: Gastroenterology [place] Reason for Consult: Transfer from [facility] for abdominal pain x2 days with 3 epsiodes of bloody bowel movements with bright red blood. Has known history of non alcholic cirrhosis and follows for same with [facility]. Reports colonoscopy around 2 years ago that was normal and EGD around 2 months ago which was also normal at [facility]. CT abdomen at sending facility showed diffuse diverticulosis with circumferential sigmoid wall thickening possibly representing diverticulities, infectious or noninfectious colitis, or neoplasm recommending colonoscopy after symptom resolution, cirrhosis and portal venous hypertension, with gastric varices, and cholelithiasis. Call Completed: No 03/26/19 08:51 Consult to Occupational Therapy [CONS] Routine Comment: Evaluate, develop and implement POC Reason for Consult: establish functional capacity and recs on rehab potential/requirements Does patient have active BEDREST order?: No Is patient medically & hemodynamically stable?: Yes Patient assessed for mobility or mobilized this visit?: No Consult to Physical Therapy [CONS] Routine Comment: Evaluate, develop and implement POC Reason for Consult: establish functional capacity and recs on rehab potential/requirements Does patient have active BEDREST order?: No Is patient medically & hemodynamically stable?: Yes Patient assessed for mobility or mobilized this visit?: No Discharging clinician: Myke Lopez Anticipated date of discharge: 03/27/19 - Constitutional Vitals: Temp Pulse Resp BP Pulse Ox 98.1 F 90 13 115/73 96 03/27/19 05:03/27/19 05:03/27/19 05:03/27/19 05:03/27/19 05:09 Exam: Gen: AOx3, no acute distress, pleasant affect Skin: Warm and dry, no rashes or lesions Cardic: S1 and S2, no m/r/g Chest :CTA b/l, no wheezes or crackles. Abd:Soft, tender to palpation diffusely, which has been present throughout admission and prior, bowel sounds not present. Extremities: normal sensation and strength on all 4 extremities. Neuro:No focal deficits Pulses: Pulses normal on all 4 extremities. Rest of the physical exam is non contributory. - Patient Status Disposition: Home, Self-Care Condition: Good Functional capacity at discharge: independent ambulation Overall status at discharge: patient is progressing back to baseline - Discharge Instructions Follow Up With: Kwabena Akins DO [Partnered Physician] - NONE,PCP [Primary Care Provider] - Prosper Aguayo MD [Resident] - Jori Smith MD [Partnered Physician] - Additional Instructions: Please follow up with your primary care provider in 3-5 days, and gastroenterology in 3-6 weeks. You will require repeat colonoscopy in 3 years or as per gastroenterology. Please follow up with Dr. Akins general surgeon for evaluation of cholelithiasis. We have continued all home medications and not initiated any new medications this hospitalization. You were recommended home health. Due to no agency being able to come to your home at this time due to previous infestation, Social work was unable to facilitate home health care for you. As we discussed your only option for rehab was to go to [facility] facility, which you were accepted at, but you refused placement and opted for discharge to home without home health services. It is very important you follow up with a primary doctor. As you are in between doctors at this time we have referred you to the [facility] office here in an attempt to have you seen in follow up. - Diet and Activity Activity: as per physical therapy Diet: diabetic diet <Kristina Lynch - Last Filed: 03/27/19 13:46> Orders not resulted at time of discharge: Pending orders 03/25/19 12:56 AFP Tumor Marker Non- Routine 03/26/19 13:23 Surgical Pathology [PTH] Routine Date of Encounter: 03/27/19 - Discharge Diagnosis (1) Abdominal pain Status: Chronic Qualifiers: Abdominal location: left lower quadrant Qualified Code(s): R10.32 - Left lower quadrant pain (2) Chest pain Status: Resolved Qualifiers: Chest pain type: unspecified Qualified Code(s): R07.9 - Chest pain, unspecified (3) Abnormal CT of the abdomen Status: Acute (4) Thrombocytopenia Status: Acute (5) Acute kidney injury Status: Resolved (6) Hyponatremia Status: Acute (7) Elevated lactic acid level Status: Acute (8) Hypomagnesemia Status: Resolved (9) Cirrhosis Status: Chronic Qualifiers: Hepatic cirrhosis type: unspecified hepatic cirrhosis Ascites presence: unspecified Qualified Code(s): K74.60 - Unspecified cirrhosis of liver (10) Diabetes mellitus Status: Chronic Qualifiers: Diabetes mellitus type: type 2 Qualified Code(s): E11.9 - Type 2 diabetes mellitus without complications Hospital course: Ms. Mcdaniels is a 73 year old female - Time Spent with Patient Total time spent providing and/or coordinating discharge services: Date of admission: 03/25/19 03:20 Primary care physician: PCP NONE Consults: 03/25/19 05:35 Consult to Gastroenterology [CONS] Routine Consulting Provider: Gastroenterology [place] Reason for Consult: Transfer from [facility] for abdominal pain x2 days with 3 epsiodes of bloody bowel movements with bright red blood. Has known history of non alcholic cirrhosis and follows for same with [facility]. Reports colonoscopy around 2 years ago that was normal and EGD around 2 months ago which was also normal at [facility]. CT abdomen at sending facility showed diffuse diverticulosis with circumferential sigmoid wall thickening possibly representing diverticulities, infectious or noninfectious colitis, or neoplasm recommending colonoscopy after symptom resolution, cirrhosis and portal venous hypertension, with gastric varices, and cholelithiasis. Call Completed: No 03/26/19 08:51 Consult to Occupational Therapy [CONS] Routine Comment: Evaluate, develop and implement POC Reason for Consult: establish functional capacity and recs on rehab potential/requirements Does patient have active BEDREST order?: No Is patient medically & hemodynamically stable?: Yes Patient assessed for mobility or mobilized this visit?: No Consult to Physical Therapy [CONS] Routine Comment: Evaluate, develop and implement POC Reason for Consult: establish functional capacity and recs on rehab potential/requirements Does patient have active BEDREST order?: No Is patient medically & hemodynamically stable?: Yes Patient assessed for mobility or mobilized this visit?: No - Constitutional Vitals: Temp Pulse Resp BP Pulse Ox 98.9 F 89 15 111/71 94 03/27/19 08:43 03/27/19 08:43 03/27/19 08:43 03/27/19 08:43 03/27/19 08:43 - Attending Attestation I examined this patient and my medical decision-making was reviewed with the Yessy nunes Physician. I agree with the documented findings, disposition and treatment plan as described except to the extent set forth below. Ms Mcdaniels is admitted for GIB and chest pain both resolved. She is medically stable for discharge today with outpt fu awake, vague intermittent lower quadrant cramps post cscope. no diarrhea, n/v/or gi bleeding. She notes she is feeling back to baseline. eating and drinking without any issues. She denies any cp, sob or chest pressure. She was set up by ANISH for dispo to [facility] as per my discussion with ANISH on 2A today no home health agency can see her for therapy due to bed bug infestation. Yesterday pt was agreeable to this plan, but today she is refusing. She lives with her chronically ill and nearly deaf daughter Pamela who is currently being taken care of by another family member. She is noting she needs to get back home to help with her daughter. She feels her activity level is at her baseline. She CLEARLY understands she cannot get HHC set up or home therapy and she continues to decline placement at [facility]. She is agreeable to working with PT today prior to leaving hospital but notes that no matter their recommendation she will dc to home without HHC. She can verbalize risk involved in refusing placement/pt/ot if that is what PT recommends and accepts that risk. She gave me contact info for her family member Cristine (her daughter Pamela can't hear well enough to speak on phone) so that I may update her to plan/patient wishes. Heather number rang to her voicemail message and message left with dispo update for her and contact info for floor if any questions. Family member plans to pick her up after work at 4pm today. gen- alert, awake,appears stated age cv- reg rate and rhythm, normal s1,s2, no pitting le edema lungs- ctabl, norm resp effort abd- soft,non tender, non distended, + bs neuro- AAOx3 Abd pain/ GIB none witnessed here Cirrhosis w grade I EV -scopes with multiple polyps removed and grade I EV, no source of bleeding, cscope in 3 years -afp pending at dc -fu with GI for cscope path results and further cirrhosis management Chest pain , atypical resolved work up here unremarkable -rec for outpt stress test w [facility] of note- she reported to pharmacy she no longer is prescribed Eliquis and instructed not to take it. Given her mult admits to [facility], [facility], [facility] and back to hospitals our pharmacy could not confirm this information. As pt noting it is no longer an active med it was held this admission and instructed to cont to hold on dc. we have sent a referral for [facility] clinic for follow up as she is in between PCPs at this time further diagnosis and plan as noted by resident time spent on dc 55 min
[2019-03-27] MEDS: Insulin LISPRO 300 UNITS/3 ML VIAL SQ SCH ×2 (09:00→11:40)
[2019-03-27 11:19] VITALS: BP 113/72
--- NOTE | 2019-03-27 13:56 | Physician Discharge Referral ---
Home Health/Hosp Referral Info Transfer to: Home Health Provider in Charge Post Discharge: PCP - Diagnosis (1) BRBPR (bright red blood per rectum) Priority: Primary Status: Resolved (2) Thrombocytopenia Priority: Secondary Status: Chronic (3) Cirrhosis Priority: Secondary Status: Chronic (4) Diabetes mellitus Priority: Secondary Status: Chronic (5) COPD (chronic obstructive pulmonary disease) Priority: Secondary Status: Chronic (6) CAD (coronary artery disease) Priority: Secondary Status: Chronic (7) HTN (hypertension) Priority: Secondary Status: Chronic (8) CKD (chronic kidney disease) Priority: Secondary Status: Chronic (9) History of DVT (deep vein thrombosis) Priority: Secondary Status: Chronic (10) Hx pulmonary embolism Priority: Secondary Status: Chronic - Respiratory Orders None Smoking Cessation: Smoking cessation has been advised. For more information, call the [place] Tobacco Quit Line at 0-945-YVJZ-NOW. - Diet/Nutrition Diet/Nutrition Orders: Regular, Cardiac, No Concentrated Sweets - Activity Activity Orders: Up ad yara, Walker - Services Needed Following services are medically necessary services: Home Health Aide, Physical Therapy, Occupational Therapy, Med Social Work - Transfer Medications Home Medications: Acetaminophen [Tylenol] 325 mg PO Q6HR PRN 03/25/19 [History] Acetaminophen/Butalbital/Caffe [Fioricet] 1 tab PO Q6H PRN 03/25/19 [History] Aspirin [Adult Aspirin] 81 mg PO DAILY 03/25/19 [History] Atorvastatin Calcium [Lipitor] 20 mg PO HS 03/25/19 [History] BuPROPion [Wellbutrin] 100 mg PO DAILY 03/25/19 [History] Duloxetine HCl [Cymbalta] 120 mg PO HS 03/25/19 [History] Furosemide [Lasix] 20 mg PO QAM 03/25/19 [History] Insulin Glargine,Hum.rec.anlog [Lantus Solostar] 28 unit SQ HS 03/25/19 [History] Ipratropium/Albuterol Sulfate [Combivent Respimat 20-100 Mcg] 1 puff IH Q6H PRN 03/25/19 [History] Isosorbide MONOnitrate (24 HR) [Imdur] 30 mg PO QAM 03/25/19 [History] Metoprolol [Lopressor] 12.5 mg PO BID 03/25/19 [History] Multivitamin [One Daily Essential] 1 tab PO DAILY 03/25/19 [History] Pantoprazole Sodium [Protonix] 40 mg PO DAILY 03/25/19 [History] Sennosides [Senna] 8.6 mg PO BID 03/25/19 [History] SitaGLIPtin [Januvia] 100 mg PO DAILY 03/25/19 [History] Spironolactone [Aldactone] 50 mg PO QAM 03/25/19 [History] Tramadol HCl [Ultram] 50 mg PO QID PRN 03/25/19 [History] traZODone [TraZODone] 50 mg PO HS 03/25/19 [History] Allergies/Adverse Reactions: Allergy/AdvReac Type Severity Reaction Status Date / Time niacin Allergy Hives Verified 03/26/19 12:50 [From Niaspan Extended-Release] oxycodone [From Percocet] Allergy Hives Verified 03/26/19 12:50 heparin AdvReac Nausea Verified 03/25/19 07:59 Certification: Further, I certify that my clinical findings support that this patient is homebound (i.e. absences from home require considerable and taxing effort and are for medical reasons or [employer] services or infrequently or short duration when for other reasons) because: Homebound Reason: Patient requires assistance of a person or device to safely leave home, Leaving home requires considerable and taxing effort due to condition Attestation: My signature below is to certify that this patient is under my care and that I, or nurse practitioner, or a physician's tutoring assistant working with me, has a [id number] encounter with this patient.
[2019-03-27] MEDS ORDERED: traZODone 50 MG TABLET PO SCH (21:00)
[2019-03-28] MEDS ORDERED: Furosemide 20 MG TABLET PO SCH (09:00)
[2019-03-28] MEDS ORDERED: Aspirin Enteric Coated 81 MG Tablet PO SCH (09:00)
[2019-03-28] MEDS ORDERED: Isosorbide MONOnitrate (24 HR) 30 MG TAB.ER.24H PO SCH (09:00)
== END 2019-03-27 18:32 | disposition home or self-care (01) ==
LOC: 2ANU → SUATTDRO 03:20
PROVIDERS: ADMIT Internal Medicine; ATTEND Internal Medicine